=== PATIENT | female | born 1955 | race Caucasian/White ===

== ENCOUNTER 2022-07-17 12:07 | Outpatient (CLI) | payer MEDICARE, OTHER, SELFPAY ==
[2022-07-17 18:04] LABS: Basophils Percent Auto 0.7 % (0.2-1.2); Eosinophils Absolute Auto 0.2 K/mm3 (0-0.3); Eosinophils Percent Auto 3.8 % (0-4.4); Hematocrit 35.3 % (37.0-47.0); Hemoglobin 11.1 g/dL (12.0-15.0); Lymphocytes Absolute Auto 1.42 K/mm3 (0.9-3.2); Lymphocytes Percent Auto 25.8 % (18.3-44.2); Mean Corpuscular HGB Conc 31.4 g/dl (32-36); Mean Corpuscular Hemoglobin 30.6 pg (26-34); Mean Corpuscular Volume 97.2 fl (80-100); Monocytes Absolute Auto 0.4 K/mm3 (0.1-0.6); Monocytes Percent Auto 6.9 % (2.6-8.5); Neutrophils Absolute Auto 3.5 K/mm3 (1.3-6.7); Neutrophils Percent Auto 62.8 % (45.5-73.1); Platelet Count Result 174 k/mm3 (150-375); Red Blood Count 3.63 M/mm3 (4.2-5.4); Red Cell Distribution Width 13.4 % (11.5-14.5); White Blood Count 5.5 K/mm3 (4.5-10.0)
[2022-07-17 19:33] LABS: Alanine Aminotransferase 14 U/L (6-35); Albumin Level 4.2 g/dL (3.5-5.1); Alkaline Phosphatase 91 U/L (38-126); Anion Gap 6 mmol/L (8-16); Aspartate Amino Transferase 51 U/L (14-36); Bilirubin,Total 1.5 mg/dL (0.2-1.3); Blood Urea Nitrogen 11 mg/dL (7-17); Calcium 8.9 mg/dL (8.4-10.2); Carbon Dioxide 33 mmol/L (22-30); Chloride 101 mmol/L (98-107); Cholesterol 119 mg/dL (0-200); Estimated Glomerular Filt Rate > 60; Glucose 97 mg/dL (65-110); HDL Direct 42 mg/dL; Sodium 140 mmol/L (137-145); Triglycerides 71 mg/dL (<150)
[2022-07-17 19:46] LABS: LDL Cholesterol Direct 54 mg/dL
== END 2022-07-17 12:08 | disposition home or self-care (01) ==
PROVIDERS: PCP Family Medicine; Visit Provider Family Medicine
DX: E07.9 Disorder of thyroid, unspecified (principal); I51.9 Heart disease, unspecified
CPT/HCPCS: 36415; 80053; 80061; 84443; 85025

== ENCOUNTER 2023-01-20 11:15 | Outpatient (CLI) | payer MEDICARE, OTHER, SELFPAY | END 2023-01-20 11:16 | disposition home or self-care (01) | PROVIDERS: PCP Family Medicine; Visit Provider Family Medicine | DX: E07.9 Disorder of thyroid, unspecified (principal) | CPT/HCPCS: 36415; 84443 ==

== ENCOUNTER 2023-03-20 10:31 | Outpatient (CLI) | payer MEDICARE, OTHER, SELFPAY | END 2023-03-20 10:32 | disposition home or self-care (01) | LOC: ANHBWCLAB 10:34 | PROVIDERS: PCP Family Medicine; Visit Provider Family Medicine | DX: E07.9 Disorder of thyroid, unspecified (principal) | CPT/HCPCS: 36415; 84443 ==

== ENCOUNTER 2023-04-17 12:05 | Outpatient (CLI) | payer OTHER, SELFPAY ==
[2023-04-17 18:59] LABS: Hematocrit 39.5 % (37.0-47.0); Hemoglobin 12.8 g/dL (12.0-15.0); Mean Corpuscular HGB Conc 32.4 g/dl (32-36); Mean Corpuscular Hemoglobin 33.2 pg (26-34); Mean Corpuscular Volume 102.6 fl (80-100); Mean Platelet Volume 9.5 fl (7.4-10.4); Platelet Count Result 170 k/mm3 (150-375); Red Blood Count 3.85 M/mm3 (4.2-5.4); Red Cell Distribution Width 12.7 % (11.5-14.5); White Blood Count 5.5 K/mm3 (4.5-10.0)
[2023-04-17 19:36] LABS: Alanine Aminotransferase 11 U/L (6-35); Alkaline Phosphatase 73 U/L (38-126); Anion Gap 5 mmol/L (8-16); Aspartate Amino Transferase 39 U/L (14-36); Bilirubin,Total 1.7 mg/dL (0.2-1.3); Blood Urea Nitrogen 11 mg/dL (7-17); Calcium 9.4 mg/dL (8.4-10.2); Carbon Dioxide 34 mmol/L (22-30); Chloride 100 mmol/L (98-107); Estimated Glomerular Filt Rate 55; Glucose 85 mg/dL (65-110); Potassium 3.9 mmol/L (3.4-5.0); Sodium 139 mmol/L (137-145)
[2023-04-17 20:50] LABS: Appearance Urine Cloudy (Clear); Color Urine Yellow (Yellow)
[2023-04-17 20:51] LABS: Bilirubin Urine 1+ (Negative); Blood Urine Negative (Negative); Glucose Urine UA Negative (Negative); Ketones Urine Trace mg/dL (Negative); Leukocyte Esterase Ur Negative LEU/UL (NEGATIVE); Nitrate Urine Negative (Negative); Protein Urine Trace mg/dL (Negative); Specific Grav Ur >= 1.030 (1.001-1.035); Urobilinogen Urine 0.2 mg/dL (<2.0)
[2023-04-17 20:52] LABS: Add Urine Microscopic? NO
== END 2023-04-17 12:06 | disposition home or self-care (01) ==
LOC: ANHBWCLAB 12:06
PROVIDERS: PCP Family Medicine; Visit Provider Family Medicine
DX: I51.9 Heart disease, unspecified (principal); G47.00 Insomnia, unspecified; D64.9 Anemia, unspecified; B34.9 Viral infection, unspecified; E07.9 Disorder of thyroid, unspecified
CPT/HCPCS: 36415; 80053; 81003; 85027

== ENCOUNTER 2023-05-27 11:24 | Outpatient (CLI) | payer OTHER, SELFPAY ==
[2023-05-27 19:41] LABS: Thyroid Stimulating Hormone 0.372 uIU/mL (0.465-4.680)
== END 2023-05-27 11:25 | disposition home or self-care (01) ==
LOC: ANHBWCLAB 11:25
PROVIDERS: PCP Family Medicine; Visit Provider Family Medicine
DX: Z09 Encounter for follow-up examination after completed treatment for conditions other than malignant neoplasm (principal)
CPT/HCPCS: 36415; 84443

== ENCOUNTER 2023-08-04 11:17 | Outpatient (CLI) | payer OTHER, SELFPAY ==
[2023-08-04 19:22] LABS: Free T4 Free Thyroxine 1.43 ng/mL (0.78-2.19)
[2023-08-04 19:32] LABS: Alanine Aminotransferase 11 U/L (6-35); Albumin Level 4.1 g/dL (3.5-5.1); Alkaline Phosphatase 69 U/L (38-126); Aspartate Amino Transferase 57 U/L (14-36); Bilirubin,Total 1.7 mg/dL (0.2-1.3)
== END 2023-08-04 11:18 | disposition home or self-care (01) ==
PROVIDERS: PCP Family Medicine; Visit Provider Family Medicine
DX: E03.9 Hypothyroidism, unspecified (principal); I51.9 Heart disease, unspecified; R74.8 Abnormal levels of other serum enzymes; D64.9 Anemia, unspecified; G47.00 Insomnia, unspecified; I10 Essential (primary) hypertension
CPT/HCPCS: 36415; 80076; 84439; 84443

== ENCOUNTER 2023-12-18 11:14 | Outpatient (CLI) | payer OTHER, SELFPAY ==
[2023-12-18 19:03] LABS: Hematocrit 39.3 % (37.0-47.0); Hemoglobin 12.5 g/dL (12.0-15.0); Mean Corpuscular HGB Conc 31.8 g/dl (32-36); Mean Corpuscular Hemoglobin 33.6 pg (26-34); Mean Corpuscular Volume 105.6 fl (80-100); Mean Platelet Volume 9.6 fl (7.4-10.4); Platelet Count Result 142 k/mm3 (150-375); Red Blood Count 3.72 M/mm3 (4.2-5.4); White Blood Count 5.8 K/mm3 (4.5-10.0)
[2023-12-18 19:13] LABS: Alanine Aminotransferase 11 U/L (6-35); Alkaline Phosphatase 69 U/L (38-126); Anion Gap 8 mmol/L (4-12); Aspartate Amino Transferase 50 U/L (14-36); Bilirubin,Total 1.7 mg/dL (0.2-1.3); Blood Urea Nitrogen 16 mg/dL (7-17); Calcium 8.8 mg/dL (8.4-10.2); Carbon Dioxide 30 mmol/L (22-30); Chloride 100 mmol/L (98-107); Cholesterol 126 mg/dL (0-200); Estimated Glomerular Filt Rate 49; Glucose 101 mg/dL (65-110); HDL Direct 56 mg/dL; Potassium 3.9 mmol/L (3.4-5.0); Sodium 138 mmol/L (137-145); Triglycerides 79 mg/dL (<150)
[2023-12-18 19:24] LABS: LDL Cholesterol Direct 49 mg/dL
[2023-12-18 19:29] LABS: Free T4 Free Thyroxine 1.27 ng/mL (0.78-2.19)
[2023-12-18 19:33] LABS: Vitamin D 25 Hydroxy 32.9 ng/mL
[2023-12-18 19:55] LABS: Hepatitis B Surface Antigen Negative (Negative)
[2023-12-18 20:00] LABS: HAV RESULT Negative (Negative); Hepatitis B Core IgM Result Negative (Negative)
[2023-12-18 20:12] LABS: Hepatitis C Virus Antibody Negative (Negative)
== END 2023-12-18 11:15 | disposition home or self-care (01) ==
PROVIDERS: PCP Family Medicine; Visit Provider Family Medicine
DX: E03.9 Hypothyroidism, unspecified (principal); R74.01 Elevation of levels of liver transaminase levels; E55.9 Vitamin D deficiency, unspecified; G47.00 Insomnia, unspecified; R74.8 Abnormal levels of other serum enzymes; D64.9 Anemia, unspecified; E07.9 Disorder of thyroid, unspecified; I51.9 Heart disease, unspecified; K92.9 Disease of digestive system, unspecified; K31.89 Other diseases of stomach and duodenum; Z98.84 Bariatric surgery status
CPT/HCPCS: 36415; 80053; 80061; 80074; 82306; 84439; 84443; 85027

== ENCOUNTER 2024-02-12 00:02 | Day surgery (SDC) | payer OTHER, SELFPAY ==
[2024-02-02 15:12] VITALS: BMI 37.9
--- NOTE | 2024-02-12 07:50 | P.PNAN_ITS ---
Anes - Initial Pre Proc Eval Procedure: Operation Date: 02/12/24 10:30 Proposed Procedures p Screening Colonoscopy - Jermain Hutchison DO Date/Time: 02/12/24 07:50 Surgeon: Jermain Hutchison DO Pre Op Diagnosis: Screening for malignant neoplasm of colon Patient Data Age: 68 Gender: F Height: 1.55 m Weight: 91 kg Allergies Allergy/AdvReac Type Severity Reaction Status Date / Time ampicillin Allergy Unknown Dyspnea / Verified 02/12/24 09:41 SOB cephalexin Allergy Unknown Dyspnea / Verified 02/12/24 09:41 SOB Penicillins Allergy Unknown Dyspnea / Verified 02/12/24 09:41 SOB Home Medications Medication Instructions Recorded Confirmed Type cholecalciferol (vitamin D3) 50 50 mcg PO DAILY 07/17/22 02/12/24 History mcg/drop (2,000 unit/drop) oral drops timolol 0.5 % eye drops 1 drp EACH EYE Q12H 07/17/22 02/12/24 History furosemide 20 mg tablet 20 mg PO QAM #90 tabs 05/30/23 02/12/24 Rx trazodone 100 mg tablet 100 mg PO QHS PRN insomnia #90 tabs 07/14/23 02/12/24 Rx levothyroxine 100 mcg tablet See Rx Instructions .Route 07/24/23 02/12/24 Rx .COMPLEX #60 tabs Fluorometholone 1 drp EACH EYE DAILY 08/04/23 02/12/24 History meloxicam 15 mg tablet 15 mg PO DAILY PRN Pain, Mild 08/04/23 02/12/24 History triamcinolone acetonide 0.1 % 1 applic topical BID left lower 11/18/23 02/12/24 Rx topical cream leg rash #80 grams brimonidine 0.2 % eye drops 1 drp EACH EYE DAILY 02/02/24 02/12/24 History Patient hx anesthesia problems: none Family hx anesthesia problems: none Results Review: All pre-operative results and documents have been reviewed as part of the pre- operative evaluation. [facility] Past Medical History Medical History Disorder of thyroid Elevated liver enzymes Heart disease Hypothyroidism PDA (patent ductus arteriosus) Surgical History Surgical History S/P gastric bypass Family History Family History Mother Family history of arthritis Father Family history of lung cancer Sibling Skin cancer Grandparent Disorder of thyroid Social History Social History Smoking status: Never smoker Alcohol intake: never Alcohol use details: Wine on occasion Substance use: never Substance use type: does not use Lack of Transportation: No Lack of Food: Never True Current Housing: I Have Housing Concerned About Future Housing: No Difficulty Paying Gas/Electric Bills: No Difficulty Paying for Meds: No Currently Unemployed: No Education: High School Diploma/GED Difficulty w/ Childcare or Family Care: No Living arrangements: with family Occupation/Education: retired Gender identity (if verbalized by the patient): Female Spiritual care concerns: No Agree to blood products: No Anes - Eval Final PreProcedure Day of Procedure 02/12/24 07:50 Patient weight: obese Heart: regular rate and rhythm Lungs: clear to auscultation Airway: Mallampati scale class III Neurological: alert and oriented Last oral intake: >/= 8 hours ASA classification: III Emergent: no Anesthetic plan: proceed Anesthesia type and monitoring: general GIVS Results Review: All pre-operative results and documents have been reviewed as part of the pre- operative evaluation. Informed Consent: The patient's anesthetic plan and its attendant risks and benefits were discussed with the patient/family/POA. Questions were solicited and answers provided to the satisfaction of the patient/family/POA.
[2024-02-12 09:44] VITALS: BP 142/72; PULSE 81; RESP 16; TEMP 36.2; O2SAT 99; BMI 37.9
[2024-02-12] MEDS: LACTATED RINGERS 1,000 ML 150 ML IV CONT (10:00)
--- NOTE | 2024-02-12 11:06 | PM.IMHP ---
H&P: HPI History of Present Illness Date/Time: 02/12/24 11:06 Chief Complaint: screening for colorectal cancer Narrative: this is a 68-year-old woman who presents for colonoscopy. Her last colonoscopy was 5 years ago and polyps were removed. She denies any hematochezia she denies family history of colon cancer. Review of Systems Review of Systems: All systems reviewed & are unremarkable except as noted in HPI and below Constitutional: Constitutional: Denies chills, Denies fever(s), Denies headache(s) and Denies weight loss Eyes: Eyes: Denies change in vision ENT: Denies dizziness, Denies headache(s), Denies neck mass and Denies throat swelling Cardiovascular: Cardiovascular: Denies chest pain, Denies lightheadedness and Denies dyspnea Respiratory: Respiratory: Denies cough, Denies dyspnea and Denies wheezing Gastrointestinal: Gastrointestinal: Denies abdominal pain, Denies change in bowel habits, Denies nausea and Denies vomiting Genitourinary: Genitourinary: Denies hematuria and Denies dysuria Musculoskeletal: Musculoskeletal: Reports as per HPI Integumentary/Breasts: Skin/Breast: Reports as per HPI Neurologic: Denies dizziness and Denies headache(s) Allergic/Immunologic: Allergic/Immunologic: Denies throat swelling and Denies wheezing [facility] Past Medical History Medical History (Updated 02/12/24 @ 08:10 by Quinn Menendez Jr., CRNA) Disorder of thyroid Elevated liver enzymes Heart disease Hypothyroidism PDA (patent ductus arteriosus) Surgical History Surgical History S/P gastric bypass Family History Family History Mother Family history of arthritis Father Family history of lung cancer Sibling Skin cancer Grandparent Disorder of thyroid Social History Social History Smoking status: Never smoker Alcohol intake: never Alcohol use details: Wine on occasion Substance use: never Substance use type: does not use Lack of Transportation: No Lack of Food: Never True Current Housing: I Have Housing Concerned About Future Housing: No Difficulty Paying Gas/Electric Bills: No Difficulty Paying for Meds: No Currently Unemployed: No Education: High School Diploma/GED Difficulty w/ Childcare or Family Care: No Living arrangements: with family Occupation/Education: retired Gender identity (if verbalized by the patient): Female Spiritual care concerns: No Agree to blood products: No Meds Home Medications and Allergies Home Medications Medication Instructions Recorded Confirmed Type cholecalciferol (vitamin D3) 50 50 mcg PO DAILY 07/17/22 02/12/24 History mcg/drop (2,000 unit/drop) oral drops timolol 0.5 % eye drops 1 drp EACH EYE Q12H 07/17/22 02/12/24 History furosemide 20 mg tablet 20 mg PO QAM #90 tabs 05/30/23 02/12/24 Rx trazodone 100 mg tablet 100 mg PO QHS PRN insomnia #90 tabs 07/14/23 02/12/24 Rx levothyroxine 100 mcg tablet See Rx Instructions .Route 07/24/23 02/12/24 Rx .COMPLEX #60 tabs Fluorometholone 1 drp EACH EYE DAILY 08/04/23 02/12/24 History meloxicam 15 mg tablet 15 mg PO DAILY PRN Pain, Mild 08/04/23 02/12/24 History triamcinolone acetonide 0.1 % 1 applic topical BID left lower 11/18/23 02/12/24 Rx topical cream leg rash #80 grams brimonidine 0.2 % eye drops 1 drp EACH EYE DAILY 02/02/24 02/12/24 History Allergies Allergy/AdvReac Type Severity Reaction Status Date / Time ampicillin Allergy Unknown Dyspnea / Verified 02/12/24 09:41 SOB cephalexin Allergy Unknown Dyspnea / Verified 02/12/24 09:41 SOB Penicillins Allergy Unknown Dyspnea / Verified 02/12/24 09:41 SOB Vital Signs Vital Signs - 24 hr 02/12/24 09:44 Temperature 97.2 F L Pulse Rate 81 Respiratory Rate 16 Blood Pressure 142/72 H Pulse Oximetry 99 Oxygen Delivery Room Air Exam Const: General: no acute distress and alert Orientation/consciousness: patient oriented x3 HENMT: Head: normocephalic and atraumatic Ears: hearing grossly normal bilaterally Face/Nose/Sinus: Normal nares present Mouth: Yes Normal oral and palatal mucosa present Eyes: Periorbital: periorbital findings normal Sclera: sclerae normal EOM: EOMs intact bilaterally Neck: Neck: normal visual inspection, no lymphadenopathy and trachea midline Chest: Chest palpation & inspection: normal inspection of the chest Resp: Effort & Inspection: normal respiratory effort Auscultation: clear to auscultation bilaterally Cardio: Jugular venous distension: no JVD Rate: regular rate Rhythm: regular rhythm Heart sounds: S1 normal heart sound present and S2 normal heart sound present Peripheral pulses: Peripheral pulses 2+ throughout GI: Inspection: normal to inspection GI Palp: Yes Soft to palpation, No Tenderness to palpation present (GI), No Guarding due to palpation present (GI) and No Rebound tenderness present Percussion: Yes normal to percussion Auscultation: normal bowel sounds : General: Yes no CVA tenderness Back/Spine/Pelvis: Back: no CVA tenderness Neuro: General: patient oriented x3, no focal motor deficits and CN's II-XI intact bilaterally Cognition (Neuro): normal cognition Speech: normal speech Motor exam (neuro): 5/5 motor strength present throughout Extrem: General: capillary refill normal and no clubbing, cyanosis or edema Assessment and Plan Assessment and plan (1) Colon cancer screening: Code(s): Z12.11 - Encounter for screening for malignant neoplasm of colon Status: Acute Assessment and Plan: I have recommended colonoscopy. I have discussed the procedure, risks, benefits, and alternatives. Questions were answered. Patient is agreeable to proceed.
--- NOTE | 2024-02-12 11:17 | WPDANESEPPF ---
Anes - Initial Pre Proc Eval Procedure: Operation Date: 02/12/24 10:30 Proposed Procedures p Screening Colonoscopy - Jermain Hutchison DO Date/Time: 02/12/24 11:17 Surgeon: Jermain Hutchison DO Pre Op Diagnosis: Screening for malignant neoplasm of colon Patient Data Age: 68 Gender: F Height: 1.55 m Weight: 91 kg Last Vital Signs Temp 36.2 C L 02/12/24 09:44 Pulse 81 02/12/24 09:44 Resp 16 02/12/24 09:44 BP 142/72 H 02/12/24 09:44 Pulse Ox 99 02/12/24 09:44 O2 Del Method Room Air 02/12/24 09:44 Allergies Allergy/AdvReac Type Severity Reaction Status Date / Time ampicillin Allergy Unknown Dyspnea / Verified 02/12/24 09:41 SOB cephalexin Allergy Unknown Dyspnea / Verified 02/12/24 09:41 SOB Penicillins Allergy Unknown Dyspnea / Verified 02/12/24 09:41 SOB Home Medications Medication Instructions Recorded Confirmed Type cholecalciferol (vitamin D3) 50 50 mcg PO DAILY 07/17/22 02/12/24 History mcg/drop (2,000 unit/drop) oral drops timolol 0.5 % eye drops 1 drp EACH EYE Q12H 07/17/22 02/12/24 History furosemide 20 mg tablet 20 mg PO QAM #90 tabs 05/30/23 02/12/24 Rx trazodone 100 mg tablet 100 mg PO QHS PRN insomnia #90 tabs 07/14/23 02/12/24 Rx levothyroxine 100 mcg tablet See Rx Instructions .Route 07/24/23 02/12/24 Rx .COMPLEX #60 tabs Fluorometholone 1 drp EACH EYE DAILY 08/04/23 02/12/24 History meloxicam 15 mg tablet 15 mg PO DAILY PRN Pain, Mild 08/04/23 02/12/24 History triamcinolone acetonide 0.1 % 1 applic topical BID left lower 11/18/23 02/12/24 Rx topical cream leg rash #80 grams brimonidine 0.2 % eye drops 1 drp EACH EYE DAILY 02/02/24 02/12/24 History Patient hx anesthesia problems: none Family hx anesthesia problems: none Results Review: All pre-operative results and documents have been reviewed as part of the pre-operative evaluation. [facility] Past Medical History Medical History Disorder of thyroid Elevated liver enzymes Heart disease Hypothyroidism PDA (patent ductus arteriosus) Surgical History Surgical History S/P gastric bypass Family History Family History Mother Family history of arthritis Father Family history of lung cancer Sibling Skin cancer Grandparent Disorder of thyroid Social History Social History Smoking status: Never smoker Alcohol intake: never Alcohol use details: Wine on occasion Substance use: never Substance use type: does not use Lack of Transportation: No Lack of Food: Never True Current Housing: I Have Housing Concerned About Future Housing: No Difficulty Paying Gas/Electric Bills: No Difficulty Paying for Meds: No Currently Unemployed: No Education: High School Diploma/GED Difficulty w/ Childcare or Family Care: No Living arrangements: with family Occupation/Education: retired Gender identity (if verbalized by the patient): Female Spiritual care concerns: No Agree to blood products: No Anes - Eval Final PreProcedure Day of Procedure 02/12/24 11:17 Patient weight: obese Heart: regular rate and rhythm (murmur) Lungs: clear to auscultation and normal air movement Airway: Mallampati scale class II and special considerations (several missing teeth) poor dentition Neurological: alert and oriented Last oral intake: >/= 8 hours ASA classification: III Emergent: no Anesthetic plan: proceed Anesthesia type and monitoring: general GIVS and standard monitoring Results Review: All pre-operative results and documents have been reviewed as part of the pre-operative evaluation. Informed Consent: The patient's anesthetic plan and its attendant risks and benefits were discussed with the patient/family/POA. Questions were solicited and answers provided to the satisfaction of the patient/family/POA.
[2024-02-12 11:37] VITALS: BP 142/72; PULSE 71; RESP 17; O2SAT 99
[2024-02-12 11:47] VITALS: BP 134/60; PULSE 70; RESP 19; O2SAT 100
[2024-02-12 11:57] VITALS: BP 120/63; PULSE 63; RESP 22; O2SAT 100
== END 2024-02-12 12:12 | disposition home or self-care (01) ==
PROVIDERS: PCP Family Medicine; Visit Provider Surgery
PROC: 0DJD8ZZ Inspection of Lower Intestinal Tract, Via Natural or Artificial Opening Endoscopic (ICD-10-PCS; CPT 45378; principal; 2024-02-12 10:30)
DX: Z12.11 Encounter for screening for malignant neoplasm of colon (principal); E07.9 Disorder of thyroid, unspecified; E03.9 Hypothyroidism, unspecified; I51.9 Heart disease, unspecified; Q25.0 Patent ductus arteriosus; E66.9 Obesity, unspecified; Z68.37 Body mass index [BMI] 37.0-37.9, adult; Z98.890 Other specified postprocedural states; Z98.84 Bariatric surgery status; Z86.0100 Personal history of colon polyps, unspecified; Z80.1 Family history of malignant neoplasm of trachea, bronchus and lung; Z84.0 Family history of diseases of the skin and subcutaneous tissue
CPT/HCPCS: G0105; J2003; J2704; J7120

== ENCOUNTER 2024-06-07 10:48 | Outpatient (CLI) | payer OTHER, SELFPAY | END 2024-06-07 10:49 | disposition home or self-care (01) | LOC: GOSHIMG 10:48 | PROVIDERS: PCP Family Medicine; Visit Provider Family Medicine | DX: R90.82 White matter disease, unspecified (principal); R74.8 Abnormal levels of other serum enzymes; E03.9 Hypothyroidism, unspecified; G47.00 Insomnia, unspecified; D64.9 Anemia, unspecified; I51.9 Heart disease, unspecified; R41.3 Other amnesia; R42 Dizziness and giddiness; S09.90XA Unspecified injury of head, initial encounter; X58.XXXA Exposure to other specified factors, initial encounter | CPT/HCPCS: 70551; 76705 ==

== ENCOUNTER 2024-06-10 14:41 | Outpatient (CLI) | payer OTHER, SELFPAY ==
--- OUTSIDE RECORDS SUMMARY | 2024-06-10 16:00 | XMS_ITS | Encounter Summary ---
Author Organization [facility] Address [address] [place] [address] Phone Care Team Providers Care Quilt Stuffer Name Role Phone Bettie Dietz APRN, CNP Primary Care P rovider Jorge Orellana MD Primary Care Provider [phone] Bettie Dietz APRN, CNP Primary Care P rovider Jorge Orellana MD Primary Care Provider [phone] Reason for Visit * Reason Comments Medication Refill Encounter Details Date Type Department Care Team (Late st Contact Info) Description 03/03/2022 Refill [facility] - Primary Care - [place] [address] [place] [address] Bettie Dietz APRN, [facility] [address] [place] [address] Medication Refill Social History Tobacco Use Types Packs/Day Years Used Date Smoking Tobacco: Never Smokeless Tobacco: Never Alcohol Use Standard Drinks/Week Comments No 0 (1 standard drink = 0.6 oz pur e alcohol) PHQ-2 Answer Date Recorded Total Score - Questions 1-9 0 08/06 Comments No Sex and Gender Information Value Date Recorded Sex Assigned at Not on file Legal Sex Female 4:25 PM HAY FARMER Gender Identity Not on file Sexual Orientation Not on file Occupation Industry Job Start Date Job End Date [employer]- [employer] Not on file Not on file Not on file documented as of this encounter Miscellaneous Notes * Telephone Encounter - Radu Barajas PAC - 03/04/2022 11:14 AM HAY FARMER Rx request approved. FARMER * Telephone Encounter - Teri Wade RN - 03/04/2022 8:01 AM CST Medication failed the protocol, provider to review and approve the medication order if appropriate. Requested Prescriptions Pending Prescriptions Disp Refills meloxicam (MOBIC) 15 MG Tablet [Pharmacy Med Name: MELOXICAM 15 MG TABLET] 90 Tablet 0 Sig: TAKE 1 TABLET BY MOUTH EVERY DAY NSAIDs Protocol Failed - 03/03/2022 7:04 AM Failed - Normal serum creatinine in past 12 months CREATININE, BLOOD Date Value Ref Range Status 08/08/2021 1.21 (H) 0.60 - 1.10 mg/dL Final Failed - Not delegated, patient not between 1 and 65 years of age Passed - Visit with relevant provider in past 12 months or upcoming 90 days Recent Visits Date Type Provider Dept 12/26/21 Office Visit Bettie Dietz APRN, CNP [facility] 09/05/21 Office Visit Bettie Dietz APRN, CNP [facility] 08/08/21 Office Visit Bettie Dietz APRN, CNP [facility] [employer] Showing recent visits within past 365 days and meeting all other requirements Future Appointments Date Type Provider Dept 03/27/22 Appointment [facility] 04/03/22 Appointment Bettie Dietz APRN, [facility] Showing future appointments within next 90 days and meeting all other requirements Passed - No matching NSAID med order in past 45 days No matching medication orders between 01/18/2022 8:01 AM and 03/04/2022 8:01 AM Passed - AST less than 55 or ALT less than 90 in past 12 months SGOT (AST) Date Value Ref Range Status 08/08/2021 40 (H) <=32 U/L Final SGPT (ALT) Date Value Ref Range Status 08/08/2021 19 <=41 U/L Final Passed - HGB greater than 10 or HCT greater than 30 in past 12 months HEMOGLOBIN (HGB) Date Value Ref Range Status 08/08/2021 11.9 (L) 12.0 - 15.8 g/dL Final HEMATOCRIT (HCT) Date Value Ref Range Status 08/08/2021 37.0 36.0 - 47.0 % Final FARMER documented in this encounter Plan of Treatment Upcoming Encounters Date Type Department Care Team (Late st Contact Info) Description 12/20/2024 10:15 AM CDT Appointment [facility] [address] [phone] Radu Barajas, PAC [address] [place] [address] Discharge Disposition: Discharged to home or Selfcare documented as of this encounter Visit Diagnoses Diagnosis Primary osteoarthritis involving multiple joints documented in this encounter Additional Health Concerns Infection Onset Date Last Indicated Resolved Time COVID - 19 04/29/2022 04/29/2022 04/29/2022 8:51 AM HAY FARMER COVID - 19 Confirmed 04/29/2022 04/29/2022 023 12:16 AM HAY FARMER COVID - 19 03/09/2023 03/09/2023 03/19/2023 12:1 6 AM HAY FARMER Assessment Noted Time PHQ-9 Depression Total Score: 0 08/31/19 21 11:00 AM CDT documented as of this encounter Care Teams Quilt Stuffer Relationship Specialty Start Date End Date Bettie Dietz, LOOM DOFFER, LEAD DEVELOPER [address] [place] [address] PCP - General Advanced Practice Nurse 01/30/18 Jorge Orellana MD [address] [place] [address] PCP - General Family Medicine 08/21/22 08/26/22 Bettie Dietz APRN, LEAD DEVELOPER [address] [place] [address] PCP - General Advanced Practice Nurse 08/27/2202/27 Jorge Orellana MD [address] [place] [address] PCP - General Family Medicine 02/28/23 documented as of this encounter
--- OUTSIDE RECORDS SUMMARY | 2024-06-10 16:00 | XMS_ITS | Encounter Summary ---
Author Organization [facility] Address [address] [place] [address] Phone Care Team Providers Care Restaurant Service Manager Name Role Phone Bettie Dietz APRN, CNP Primary Care P rovider Jorge Orellana MD Primary Care Provider Bettie Dietz APRN, CNP Primary Care P rovider Jorge Orellana MD Primary Care Provider Reason for Visit * Reason Comments Medication Refill Encounter Details Date Type Department Care Team (Late st Contact Info) Description 10/23/2021 Refill [facility] - Primary Care - [place] [address] [place] [address] Bettie Dietz APRN, [facility] [address] [place] [address] Medication Refill Social History Tobacco Use Types [...] on file Legal Sex Female 4:25 PM SHRUB PLANTER Gender Identity Not on file Sexual Orientation Not on file Occupation Industry Job Start Date Job End Date [employer]- [employer] Not on file Not on file Not on file documented as of this encounter Miscellaneous Notes * Telephone Encounter - Teri Wade RN - 10/23/2021 10:27 AM CDT Refill request too soon documented in this encounter Plan of Treatment Upcoming Encounters Date Type Department Care Team (Late st Contact Info) Description 12/20/2024 10:15 AM CDT Appointment [facility] [address] [place] [id number] Radu Barajas PAC [address] [place] [id number] Discharge Disposition: Discharged to home or Selfcare documented as of this encounter Visit Diagnoses Diagnosis Primary hypertension Unspecified essential hypertension Chronic combined systolic and diastolic heart failure, NYHA class 3 (HCC) Hypothyroidism, adult Other specified acquired hypothyroidism documented in this encounter Additional Health Concerns Infection Onset Date Last Indicated Resolved Time COVID - 19 04/29/2022 04/29/2022 04/29/2022 8:51 AM SHRUB PLANTER COVID - 19 Confirmed 04/29/2022 04/29/2022 023 12:16 AM SHRUB PLANTER COVID - 19 03/09/2023 03/09/2023 03/19/2023 12:1 6 AM SHRUB PLANTER Assessment Noted Time PHQ-9 Depression Total Score: 0 08/31/19 21 11:00 AM CDT documented as of this encounter Care Teams Restaurant Service Manager Relationship Specialty Start Date End Date Bettie Dietz APRN, LIVING ADVISOR [address] [place] [address] PCP - General Advanced Practice Nurse 01/30/18 Jorge Orellana MD [address] [place] [address] PCP - General Family Medicine 08/21/22 08/26/22 Bettie Dietz APRN, LIVING ADVISOR [address] [place] [address] PCP - General Advanced Practice Nurse 08/27/2202/27 Jorge Orellana MD [address] [place] [address] PCP - General Family Medicine 02/28/23 documented as of this encounter
--- OUTSIDE RECORDS SUMMARY | 2024-06-10 16:00 | XMS_ITS | Clinical Summary ---
Author Organization [facility] Address [address] [place] [address] Phone Care Team Providers Care Magazine Publisher Name Role Phone Jorge Orellana MD Primary Care Provider [phone] Allergies Active Allergy Reactions Criticality Noted Date Comments Ampicillin Anaphylaxis High 05/25/2015 Cephalexin Anaphylaxis High 05/25/2015 Penicillins Anaphylaxis High 05/25/2015 Medications spironolactone (ALDACTONE) 25 MG TabletIndications: Chronic combined systolic and diastolic heart failure, NYHA class 3 (HCC) Take 1 Tablet by mouth daily. 90 Tablet 3 02/06/20 21 Active Cholecalciferol 50 mcg Tablet Take 2,000 Units by mouth. 02/15/20 21 Active brimonidine (ALPHAGAN) 0.2 % Solution 1 Drop. 04/12/19 21 Active fluorometholone (FML) 0.1 % Suspension 1 Drop. 10/11/19 21 Active timolol (TIMOPTIC) 0.5 % Solution 1 Drop. 05/09/19 21 Active triamcinolone (KENALOG) 0.1 % CreamIndications:R cherelle Application Site: apply sparingly to affected area bid 80 g 1 08/30/19 23 Active meloxicam (MOBIC) 15 MG TabletIndications: Primary osteoarthritis involving multiple joints TAKE 1 TABLET BY MOUTH EVERY DAY 90 Tablet 1 12/03/19 23 Active Additional Information Patient taking differently: DAILY PRN, Reported on 12/06/2022 furosemide (LASIX) 20 MG TabletIndications: Primary hypertension,Chron ic combined systolic and diastolic heart failure, NYHA class 3 (HCC) TAKE 1 TABLET BY MOUTH EVERY DAY 90 Tablet 1 12/03/19 23 Active Additional Information Patient taking differently: 20 mg Oral DAILY, Reported on 12/06/2022 levothyroxine (SYNTHROID) 88 MCG TabletIndications: Hypothyroidism, adult TAKE 1 TABLET BY MOUTH EVERY DAY 90 Tablet 1 12/03/19 23 Active metoprolol Succinate (TOPROL-XL) 25 MG TABLET SR 24 HR Take 25 mg by mouth nightly. Active traZODone (DESYREL) 50 MG TabletIndications: Insomnia Take 50 mg by mouth nightly as needed. Indications: Trouble Sleeping Active traMADol (ULTRAM) 50 MG TabletIndications: Contusion of nose, initial encounter Take 1-2 Tablets by mouth every 8 hours as needed for Moderate or more severe pain. 12 Tablet 02/29/20 23 Active Active Problems Problem Noted Date Diagnosed Date NICM (nonischemic cardiomyopathy) 01/24/2022 Age-related nuclear cataract, right eye 10/31/19 21 Endothelial corneal dystrophy 10/30/2020 Other secondary cataract, left eye 10/30/2020 Presence of intraocular lens 10/30/2020 Class 2 obesity due to exces s calories without serious comorbidity with body mass index (BMI) of 39.0 to 39.9 in adult 08/12/2019 Chronic combined systolic an d diastolic heart failure, NYHA class 3 08/07/2018 Primary osteoarthritis involving multiple joints 08/07/2018 Hypothyroidism, adult 12/15/2017 Patent ductus arteriosus 12/15/2017 History of corneal transplant 12/15/2017 Hypertension 12/15/2017 Periodontal disease 02/05/2017 Chronic rhinitis 02/01/2017 Resolved Problems Problem Noted Date Diagnosed Date Resolved Date Morbid obesity with BMI of 40.0-44.9, adult 02/05/2021 04/02/2022 Acute on chronic systolic an d diastolic heart failure, NYHA class 3 02/01/2017 08/07/2018 Overview (01/30/2018): Overview: Echo 2013 [facility]: [id number] Cardiac Sonography (Echocardiography), Doppler May 25, 1999, 10:04 at [facility] Final View Details Echocardiogram and doppler report The standard 2d and m-mode views were obtained as well as color flow and Standard doppler interrogation. The aortic root is of normal size and motion pattern. The aortic valve opens normally . left atrium is moderately enlarged at 4.5 centimeters. The mitral valve opens normally without stenosis or prolapse. The left ventricle is of normal VOLUME. THERE IS A MILD DIFFUSE HYPOKINESIS PRESENT. THE ESTIMATED EJECTION FRA CTION IS 45 PERCENT. THE RIGHT ATRIUM AND RIGHT VENTRICLE GROSSLY APPEAR NORMAL DOES THE TRICUSPID VALVE. PULMONIC VALVE WAS NOT SEEN. THERE IS NO PERICARDIAL EFFUSION. NO INTRACARDIAC THROMBI OR MASSES ARE NOTED. COLOR FLOW AND NCY. 3. MODERATE LEFT ATRIAL ENLARGEMENT. 4. MILD MITRAL INSUFFICIENCY. echo 2016 IMPRESSION: 1. MILDLY DILATED LEFT ATRIUM. 2. MILDLY ENLARGED LEFT VENTRICLE WITH BORDERLINE GLOBAL LV FUNCTION. EJECTION FRACTION IS ESTIMATED AT 50-55%. 3. NO LV MURAL THROMBUS OR VALVULAR VEGETATIONS. 4. PULMONIC INSUFFICIENCY. 5. AORTIC INSUFFICIENCY, MILD. 6. MITRAL REGURGITATION, MILD. 7. TRICUSPID REGURGITATION, TRIVIAL. 8. PROBABLE DIASTOLIC DYSFUNCTION. Interpreting Physician: DR DIANE AVILES M.D. Read on: Apr 05 2016 4:38P Transcribed by: pablo On: Apr 05 2016 5:16P Approved Electronically by: TRACI Cortes, DR CONTRERAS on: Apr 05 2016 5:23P Encounters Date Type Department Care Team Description 03/15/2024 12:45 PM ESOL TEACHER - 03/15/2024 11:59 PM ESOL TEACHER Hospital Encounter [facility] Mamm[address] [place] [address] Jorge Orellana MD Discharge Disposition: Discharged to home or Selfcare 03/15/2024 Travel from Last 3 Months Immunizations Immunization Administration Dates Next Due Pneumococcal Vaccine - 13 Valent 02/12/2019 Pneumococcal Vaccine Adult - 23 Valent 0 TDAP Vaccine 11/23/2013 Zoster Vaccine, live 04/02/2013 Family History Medical History Relation Name Comments Cancer Brother skin Cancer Father LUNG Cancer Mother LUNG Heart Disease Mother Relation Name Status Comments Brother Father Mother Social History Tobacco Use Types Packs/Day Years Used Date Smoking Tobacco: Never Smokeless Tobacco: Never Tobacco Cessation:Counseling Given: Not Answered Alcohol Use Standard Drinks/Week Comments No 0 (1 standard drink = 0.6 oz pur e alcohol) PHQ-2 Answer Date Recorded Total Score - Questions 1-9 0 05/2 09/2020 Comments No Sex and Gender Information Value Date Recorded Sex Assigned at Not on file Legal Sex Female 4:25 PM ESOL TEACHER Gender Identity Not on file Sexual Orientation Not on file Occupation Industry Job Start Date Job End Date [employer] Not on file Not on file Not on file Last Filed Vital Signs Vital Sign Reading Time Taken Comments Blood Pressure 102/50 03/09/2023 3:15 PM ESOL TEACHER Pulse 72 03/09/2023 3:15 PM ESOL TEACHER Temperature 37 C (98.6 F) 03/09/2023 10:24 AM ESOL TEACHER Respiratory Rate 17 03/09/2023 3:15 PM ESOL TEACHER Oxygen Saturation 97% 03/09/2023 3:15 PM ESOL TEACHER Inhaled Oxygen Concentration - - Weight 91.2 kg (201 lb) 03/09/2023 10:24 AM ESOL TEACHER Height 154.9 cm (5' 1 ) 03/09/2023 10:24 AM ESOL TEACHER Body Mass Index 37.98 03/09/2023 10:24 AM ESOL TEACHER Plan of Treatment Upcoming Encounters Date Type Department Care Team (Late st Contact Info) Description 12/20/2024 10:15 AM CDT Appointment [facility] Mammography [address] [place] [address] Radu Barajas, [facility] [address] [place] [address] Discharge Disposition: Discharged to home or Selfcare Health Maintenance Due Date Last Done Comments Hepatitis C Virus (HCV) Screening 1955 Cologuard 2003 Immunochemical Fecal Occult Blood 2003 Respiratory Syncytial Virus (RSV) Immunization (Adult) (1 - Risk 60-74 years 1-dose series) 2013 Zoster Immunization (2 of 3) 05/28/2013 04/02/2013 Td Immunization Every 10 Years (Adults With 1 Tdap) 11/24/2023 11/23/2013 Influenza Immunization (#1) 2023 SARS-COV-2 Immunization ( season) 2023 DEXA Bone Density 12/17/2024 12/17/2022, , 03/07/2017 Mammogram 03/15/2025 03/15/2024, 08/0 06/2022, 10/11/2020, Additional history exists Colonoscopy 12/31/2027 12/30/2022, 08/08/2017 Colorectal Cancer Screening 12/31/2027 12/30/2022, 08/08/2017 Pneumococcal Immunization (50+ years) Completed 02/17/2020, 02/12/2019 Pneumococcal Immunization Combined Discontinued 02/17/2020, 02/12/2019 Hepatitis B Immunization Discontinued Meningococcal Immunization (ACWY) Aged Out No longer eligible based on patient's age to complete this topic Rotavirus Immunization Aged Out No lo nger eligible based on patient's age to complete this topic Procedures Procedure Name Priority Date/Time Associated Diagnosis Comments PEYTON SCREENING BILATERAL DIGITAL W CAD W MARI Routine 03/15/2024 1:26 PM ESOL TEACHER Visit for screening mammogram [facility] BONE DENSITOMETRY AXIAL SKELETON Routine 12/17/2022 1:36 PM CDT Postmenopausal from Last 3 Months or Most Recently Relevant to Health Maintenance Results * PEYTON SCREENING BILATERAL DIGITAL W CAD W MARI (03/15/2024 1:26 PM ESOL TEACHER) Anatomical Region Laterality Modality breast Bilateral Mammography 03/15/2024 1:27 PM ESOL TEACHER Narrative 03/16/2024 9:54 AM ESOL TEACHER - PEYTON SCREENING BILATERAL DIGITAL W CAD W MARI BILATERAL DIGITAL SCREENING MAMMOGRAM 3D/2D WITH CAD WITH MEDIOLATERAL OBLIQUE CRANIOCAUDAL: 03/15/2024 The study was acquired using digital technology and interpreted from soft copy. Current study was also evaluated with ICAD version 7.2. 2D digital mammographic views, as well as 3D digital tomosynthesis were performed in the CC and MLO projections. CLINICAL: Routine screening. Patient has no complaints. No personal history of cancer. No family history of breast cancer. COMPARISONS: Comparison is made to exams dated: 11/07/2022, 10/11/2020, 02/19/2019 [facility], and 03/07/2017 [facility]. BREAST TISSUE:There are scattered areas of fibroglandular density. FINDINGS: There are benign calcifications in both breasts. No significant masses, calcifications, or other findings are seen in either breast. There has been no significant interval change. IMPRESSION: BENIGN There is no mammographic evidence of malignancy. A 1 year screening mammogram is recommended. A letter will be sent to the patient with these results. The patient will be entered into a reminder system with a target due date of 1 year for her next screening exam. Electronically signed by: Violeta pearce/penrad:03/15/2024 18:03:31 Activities Attendant(s): RT [place](R)(M), [facility] letter sent: Normal Exam Reading location: [facility] Mammogram BI-RADS: Category 2: Benign Procedure Note Violeta Ricks MD - 03/16/2024 - PEYTON SCREENING BILATERAL DIGITAL W CAD W MARI BILATERAL DIGITAL SCREENING MAMMOGRAM 3D/2D WITH CAD WITH MEDIOLATERAL OBLIQUE CRANIOCAUDAL: 03/15/2024 The study was acquired using digital technology and interpreted from soft copy. Current study was also evaluated with ICAD version 7.2. 2D digital mammographic views, as well as 3D digital tomosynthesis were performed in the CC and MLO projections. CLINICAL: Routine screening. Patient has no complaints. No personal history of cancer. No family history of breast cancer. COMPARISONS: Comparison is made to exams dated: 11/07/2022, 10/11/2020, 02/19/2019 [facility], and 03[facility]07/2017 [facility]. BREAST TISSUE:There are scattered areas of fibroglandular density. FINDINGS: There are benign calcifications in both breasts. No significant masses, calcifications, or other findings are seen in either breast. There has been no significant interval change. IMPRESSION: BENIGN There is no mammographic evidence of malignancy. A 1 year screening mammogram is recommended. A letter will be sent to the patient with these results. The patient will be entered into a reminder system with a target due date of 1 year for her next screening exam. Electronically signed by: Violeta pearce/penrad:03/15/2024 18:03:31 Activities Attendant(s): RT [place](R)(M), [facility] letter sent: Normal Exam Reading location: [place] Mammogram BI-RADS: Category 2: Benign us Jorge Orellana MD IMG MAMMO ORDERABLES Final Resu lt * [facility] BONE DENSITOMETRY AXIAL SKELETON (12/17/2022 1:36 PM CDT) Anatomical Region Laterality Modality BODY N/A Computed Radiogr aphy 12/17/2022 1:51 PM CDT Impressions 12/17/2022 1:55 PM CDT IMPRESSION: Osteopenia. REFERENCE: Bone mineral density: Normal (T-score above or = -1.0) Low bone mass (T-score between -1.0 and -2.5) replaces the previously used term osteopenia Osteoporosis (T-score = or below -2.5) Medical evaluation for secondary causes of low bone mineral density may be appropriate. FRAX is a World Health Organization validated fracture risk assessment tool that calculates a person's 10 year probability of a major osteoporosis related fracture and hip fracture. According to the National Osteoporosis Foundation guidelines, postmenopausal women and men age 50 or older with low bone mass and a 10 year probability of a major osteoporosis related fracture = or greater than 20% or a 10 year probability of a hip fracture = or greater than 3% should be considered for treatment. For further information, including treatment recommendations, please refer to the 2019 ISCD Official Positions (http://www.iscd.org) and the NOF's Clinician's Guide to Prevention and Treatment of Osteoporosis (http://www.nof.org/professionals/clinical-guidelines) Narrative 12/17/2022 1:55 PM CDT EXAM DESCRIPTION: [facility] BONE DENSITOMETRY AXIAL SKELETON REASON FOR STUDY: 67 y/o year old F with given history of: Postmenopausal Surgical Oncologist/Model: [facility]em [facility] (S/N [id number]) CLINICAL INFORMATION: Current height: 61 inches Maximum height: 62 inches Weight: 208 pounds Risk factors: Adult fracture. COMPARISON: 10/11/2020 FINDINGS: AP LUMBAR SPINE L1-L4: Total BMD is 1.136 g/cm2 T-score is -0.5 This is -2.1% change in comparison to prior exam which is not statistically significant. LEFT HIP: Total BMD is 0.959 g/cm2 T-score is -0.4 This is -2.5% change in comparison to prior exam which is not statistically significant. Femoral neck BMD is 0.861 g/cm2 T-score is -1.3 FRAX: 10 year risk for a major osteoporotic fracture is 13.4 %, 10 year risk for a hip fracture is 1.5 % THIS IS AN ELECTRONICALLY VERIFIED FINAL REPORT 12/17/2022 1:51 PM - Electronically signed by Samir Drake M.D. AG: AG Report ID: [id number] Reading Location: [place] [address] Procedure Note Samir Drake MD - 12/17/2022 EXAM DESCRIPTION: [facility] BONE DENSITOMETRY AXIAL SKELETON REASON FOR STUDY: 67 y/o year old F with given history of: Postmenopausal Surgical Oncologist/Model: Stem [facility] (S/N [id number]) CLINICAL INFORMATION: Current height: 61 inches Maximum height: 62 inches Weight: 208 pounds Risk factors: Adult fracture. COMPARISON: 10/11/2020 FINDINGS: AP LUMBAR SPINE L1-L4: Total BMD is 1.136 g/cm2 T-score is -0.5 This is -2.1% change in comparison to prior exam which is not statistically significant. LEFT HIP: Total BMD is 0.959 g/cm2 T-score is -0.4 This is -2.5% change in comparison to prior exam which is not statistically significant. Femoral neck BMD is 0.861 g/cm2 T-score is -1.3 FRAX: 10 year risk for a major osteoporotic fracture is 13.4 %, 10 year risk for a hip fracture is 1.5 % THIS IS AN ELECTRONICALLY VERIFIED FINAL REPORT 12/17/2022 1:51 PM - Electronically signed by Samir Drake M.D. AG: AG Report ID: [id number] Reading Location: [place] [address] IMPRESSION: Osteopenia. REFERENCE: Bone mineral density: Normal (T-score above or = -1.0) Low bone mass (T-score between -1.0 and -2.5) replaces the previously used term osteopenia Osteoporosis (T-score = or below -2.5) Medical evaluation for secondary causes of low bone mineral density may be appropriate. FRAX is a World Health Organization validated fracture risk assessment tool that calculates a person's 10 year probability of a major osteoporosis related fracture and hip fracture. According to the National Osteoporosis Foundation guidelines, postmenopausal women and men age 50 or older with low bone mass and a 10 year probability of a major osteoporosis related fracture = or greater than 20% or a 10 year probability of a hip fracture = or greater than 3% should be considered for treatment. For further information, including treatment recommendations, please refer to the 2019 ISCD Official Positions (http://www.iscd.org) and the NOF's Clinician's Guide to Prevention and Treatment of Osteoporosis (http://www.nof.org/professionals/clinical-guidelines) Bettie Dietz APRN, CNP IMG DEXA ORDERA BLES Final Result from Last 3 Months or Most Recently Relevant to Health Maintenance Insurance [employer] MEDICARE SUP MEDICARE C [employer] Care Teams Magazine Publisher Relationship Specialty Start Date End Date Jorge Orellana MD [address] [place] [address] PCP - General Family Medicine 02/28/23
--- OUTSIDE RECORDS SUMMARY | 2024-06-10 16:01 | XMS_ITS | Encounter Summary ---
Author Organization [facility] Address [address] 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 Gender Identity Not on file Sexual Orientation Not on file Occupation Industry Job Start Date Job End Date [employer]- [employer] claims Not on file Not on file Not on file documented as of this encounter Miscellaneous Notes * Telephone Encounter - Sedrick Gallardo RN - 05/30/2023 8:31 AM CST Patient no longer under provider care ER SHIELDED METAL ARC documented in this encounter Plan of Treatment Upcoming Encounters Date Type Department Care Team (Late st Contact Info) Description 12/20/2024 10:15 AM CDT Appointment [facility] Mammography [address] [place] [address] Radu Barajas, PAC [address] [place] [address] Discharge Disposition: Discharged to home or Selfcare documented as of this encounter Visit Diagnoses Diagnosis Primary osteoarthritis involving multiple joints documented in this encounter Additional Health Concerns Assessment Noted Time PHQ-9 Depression Total Score: 0 08/31/19 21 11:00 AM CDT documented as of this encounter Care Teams Psychiatric Nurse Practitioner Relationship Specialty Start Date End Date Jorge Orellana MD [address] [place] [address] PCP - General Family Medicine 02/28/23 documented as of this encounter
--- OUTSIDE RECORDS SUMMARY | 2024-06-10 16:01 | XMS_ITS | Clinical Summary ---
Author Organization [facility] [address] Address [address] [place] [address] Phone Care Team Providers Care Chief Reservoir Engineering Name Role Phone Trenton Guadarrama MD Unavailable [phone] Rafael Sadler Unavailable Unavail able Rafael Foster DO Unavailable [phone] Devan Eugene NP Unavailable [phone] Jorge Orellana MD Primary Care Provider [phone] Allergies Active Allergy Reactions Criticality Noted Date Comments Ampicillin Anaphylaxis High Cephalexin Anaphylaxis High Penicillins Anaphylaxis High Medications fluticasone (FLONASE) 50 mcg/actuation nasal sprayIndications :Chronic rhinitis, unspecified type Administer 1 spray into each nostril 2 (two) times a day. 1 spray 5 7 Active levothyroxine (SYNTHROID, LEVOTHROID) 88 mcg tablet Take by mouth. 8 Active brimonidine (ALPHAGAN) 0.2 % ophthalmic solution Administer 1 drop into the left eye 2 (two) times a day 1 Active timolol (TIMOPTIC) 0.5 % ophthalmic solution Administer 1 drop into the left eye 2 (two) times a day 1 Active diphenhydrAMINE- acetaminophen (TYLENOL PM) 25-500 mg tablet Take 1 tablet by mouth nightly as needed Active fluorometholone (FML) 0.1 % ophthalmic suspension Administer 1 drop into the left eye nightly 1 Active cholecalciferol (VITAMIN D-3) 2000 unit tablet Take 1 tablet (2,000 Units total) by mouth daily 30 tablet 1 Active meloxicam (MOBIC) 15 mg tablet Take 1 tablet (15 mg total) by mouth daily 2 Active traZODone (DESYREL) 50 mg tablet Take 1 tablet (50 mg total) by mouth nightly Active Active Problems Problem Noted Date Diagnosed Date NICM (nonischemic cardiomyopathy) 01/24/2022 PDA (patent ductus arteriosus) 01/24/2022 Hyperlipidemia 01/24/2022 Chest pain 01/24/2022 Primary osteoarthritis of right knee 11/21/2020 Overview (11/21/2020): Added automatically from request for surgery [id number] Age-related nuclear cataract, right eye 10/31/19 21 Endothelial corneal dystrophy 10/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 Other secondary cataract, left eye 10/30/2020 Presence of intraocular lens 10/30/2020 Primary osteoarthritis involving multiple joints 08/07/2018 Hypertension 12/15/2017 Patent ductus arteriosus 02/05/2017 Periodontal disease 02/05/2017 History of corneal transplant 02/05/2017 Chronic combined systolic an d diastolic heart failure, NYHA class 3 02/01/2017 Overview (10/30/2020): Echo 2013 [facility] SCHAFER: [id number] Cardiac Sonography (Echocardiography), Doppler May 25, 1999, 10:04 at [facility] Final View Details Echocardiogram and doppler report [...] DR CONTRERAS on: Apr 05 2016 5:23P Class 1 obesity in adult 02/01/2017 Hypothyroidism, adult 02/01/2017 Chronic rhinitis 02/01/2017 Encounter to discuss test results 02/01/2017 Overview (02/01/2017): PFTs September 18, 2001 Obesity associated restrictive lung disease no obstruction no bronchodilator response [facility] SCHAFER: [id number] Pulmonary Function Study Report September 18, 2001 at [facility] Preliminary View Details One [address] [facility] SYSTEM Jordana Pacheco 46Y MR#: [id number] PULMONARY FUNCTION STUDY ACCT: [id number] DR: Celso Reveles M.D. ADM: 09/17/2001 R DATE OF TEST: 09/17/01 1. The flow-volume curves show a mild reduction in all major flows with preservation to slight elevation of the FEV-1 percent. This suggests possible restriction. There is no major obstruction. There is no bronchodilator response. 2. Lung volumes and sub units measured with nitrogen washout in a closed circuit indicate moderate restriction. This may actually over- state the actual case, as the major flow rates themselves are only mildly reduced, and it appears more likely that there is mild rather than moderate restriction. 3. Carbon monoxide diffusing capacity is normal when adjustment is made for alveolar volume. IMPRESSION: Probably mild restriction -- No significant obstruction. Celso Reveles M.D. [id number] Immunizations Immunization Administration Dates Next Due Tdap 11/23/2013 ZOSTER LIVE 04/02/2013 Surgical History Surgery Date Site/Laterality Comments COLONOSCOPY 12/26/2000 colonoscopy (-) Dr. Lopez EGD 02/04/[address] Sadler biopsy (-) HYSTERECTOMY PATENT DUCTUS ARTERIOUS LIGATION repair BARIATRIC SURGERY gastric bypass CHOLECYSTECTOMY BLADDER REPAIR EYE SURGERY Left cornea/cataract FRACTURE SURGERY left ankle ESOPHAGOSCOPY / EGD Dr. Sadler February 04, 2014 for iron deficiency eval COLONOSCOPY 02/06/2012 - 03/06/[address] Valencia at [facility] COLONOSCOPY W/ BIOPSIES AND POLYPECTOMY 08/08/2017 Dr. Landnoscopy 08/08/2017, polyp at the appendiceal opening ANKLE FRACTURE SURGERY Left Medical History Medical History Date Comments Obesity Anemia LVH (left ventricular hypertrophy) Periodontal disease Rhinitis Thyroid disease Heart murmur Sleep apnea Deviated septum left nare CHF (congestive heart failure) (HCC) Congenital heart defect PDA Family History Medical History Relation Name Comments Heart disease Mother ASHD Relation Name Status Comments Mother Social History Tobacco Use Types Packs/Day Years Used Date Smoking Tobacco: Never Smokeless Tobacco: Never Alcohol Use Standard Drinks/Week Comments No 0 (1 standard drink = 0.6 oz pur e alcohol) AUDIT-C Answer Date Recorded Q1: How often do you have a drink containing alc ohol? Monthly or less 02/13/2021 Q2: How many drinks containi ng alcohol do you have on a typical day when you are drinking? 1 or 2 02/13/2021 Q3: How often do you have si x or more drinks on one occasion? Never 02/13/2021 PHQ-2 Answer Date Recorded PHQ-2 Total Score (If total score is 3 or more points, staff should administer the PHQ-9) 0 02/13/2021 Comments No Sex and Gender Information Value Date Recorded Sex Assigned at Not on file Legal Sex Female 3:17 AM MEAL COOKER Gender Identity Not on file Sexual Orientation Not on file Obstetrics History Last Filed Vital Signs Vital Sign Reading Time Taken Comments Blood Pressure 114/72 02/27/2024 11:09 AM MEAL COOKER Pulse 76 02/27/2024 11:09 AM MEAL COOKER Temperature 36.6 C (97.9 F) 02/21/2022 12:54 PM MEAL COOKER Respiratory Rate 16 02/14/2023 9:56 AM MEAL COOKER Oxygen Saturation 99% 02/21/2022 5:30 PM MEAL COOKER Inhaled Oxygen Concentration - - Weight 94.3 kg (208 lb) 02/27/2024 11:09 AM MEAL COOKER Height 154.9 cm (5' 1 ) 02/27/2024 11:09 AM MEAL COOKER Body Mass Index 39.3 02/27/2024 11:09 AM MEAL COOKER Plan of Treatment Health Maintenance Due Date Last Done Comments Albumin Creatinine Ratio, Urine 1953 Colon Cancer Screening-Colonoscopy 1953 Hemoglobin A1C 1953 Dilated Eye Exam 1953 Foot Exam 1953 Hepatitis B Screening 1971 Zoster Vaccine (2 of 3) 05/28/2013 04/02/2013 Well Visit 65+ 2018 02/05/2017 Depression Screening 11/21/2021 11/21/2020 Lipid Panel 01/26/2022 01/26/2021, 050 08/2020, 02/05/2019, Additional history exists Fall Risk Assessment 02/14/2022 02/14/2021 eGFR 02/19/2023 02/19/2022, 12/2020, 02/04/2017 Breast Cancer Screening-Mammogram 11/08/2023 11/07/2022, 11/07/2022, 10/11/2020, Additional history exists DTaP/Tdap/Td Vaccine (2 - Td or Tdap) 11/24/2023 11/23/2013 Influenza Vaccine (#1) 2023 Osteoporosis Screening-Bone Density Scan 12/17/2024 12/17/2022, 12/17/2022, 10/11/2020, Additional history exists Hepatitis C Screening Completed 09/08/2015, 016 Pneumococcal vaccine 65+ Completed 02/17/2020, 11/2018 Medical Devices Implanted Type Area Manager Heavy Duty Device Identifier Shelf Expiration Date Model / Serial / Lot [id number] Angio-Seal Evolution 6fr Vascular Closure [id number] - [id number] Implanted:Qty: 1 on 02/21/2022 by Tomas Levy MD at [facility] Other - see comments PLAXD Mayela 03/06/2022 [id number] / / [id number] [employer] 6195-1-001 Cement Bone Simplex Gentamicin High Viscosity 40gm - [id number] Implanted:Qty: 1 on 02/13/2021 by Samir Oliveira MD at [facility] Right: Knee [employer] 04/06/2022 6195-1-001 / / [id number] [employer] [id number] Attune Cruciate Retain Cementless Knee Right 4 Component Femoral - [id number] Implanted:Qty: 1 on 02/13/2021 by Samir Oliveira MD at [facility] Right: Knee [employer] 07/05/2030 [id number] / / [id number] [employer] [id number] Attune S+ Cement Fix Bearing Knee 4 Baseplate Tibial - [id number] Implanted:Qty: 1 on 02/13/2021 by Samir Oliveira MD at [facility] Right: Knee [employer] 12/05/2030 [id number] / / [id number] [employer] [id number] Attune 7mm Cruciate Retaining Fix Bearing Knee 4 Insert Tibial - [id number] Implanted:Qty: 1 on 02/13/2021 by Samir Oliveira MD at [facility] Right: Knee [employer] 07/05/2025 [id number] / / [id number] Procedures Procedure Name Priority Date/Time Associated Diagnosis Comments EGFR Routine 02/19/2022 11:17 AM MEAL COOKER Chest pain, unspecified type DEXA AXIAL SKELETON BONE DENSITY 1 OR MORE SITES Schedule Routine, Read Routine (OP Routine) 03/07/2017 11:30 AM MEAL COOKER Menopause SCREENING MAMMOGRAM 2D BILATERAL Schedule Routine, Read Routine (OP Routine) 03/07/2017 11:29 AM MEAL COOKER Breast cancer screening SERUM LIPID PANEL Routine 03/21/2016 7:2 4 PM MEAL COOKER HEPATITIS C ANTIBODY Routine 09/08/2015 2:05 PM CDT from Last 3 Months or Most Recently Relevant to Health Maintenance Results * eGFR (02/19/2022 11:17 AM MEAL COOKER) eGFR 61 mL/min/1. 73 m2 [facility] ([place]) Comment: Interpretive Data Reference Interval Normal >/= 90 mL/min/1.73m2 Mildly decreased* 60 - 89 mL/min/1.73m2 Mildly to moderately decreased 45 - 59 mL/min/1.73m2 Moderately to severely decreased 30 - 44 mL/min/1.73m2 Severely decreased 15 - 29 mL/min/1.73m2 Kidney Failure < 15 mL/min/1.73m2 *Relative to young adult level Estimated glomerular filtration rate is determined by the 2020 CKD-EPI equation recommended by the National Kidney Foundation (A Unifying Approach to GFR Estimation: Recommendations of the NKF-ASK Task Force on Reassessing the Inclusion of Race in Diagnosing Kidney Disease, JASN 2020). The CKD-EPI equation should not be used for patients with unstable renal function and has not been validated in children and those over 70. Current interpretive data was last reviewed 2021. Blood 02/19/2022 11:1 7 AM MEAL COOKER 02/19/2022 11:21 AM MEAL COOKER us Tomas Levy MD LAB BLOOD ORDERABLES Final Resu lt [facility]EN WE[facility] ([place]) 1 [facility] Department of Laboratories [place], [place] [id number] * Dexa Axial Skeleton Bone Density 1 or 2 Site (03/07/2017 11:30 AM MEAL COOKER) Anatomical Region Laterality Modality Body N/A Digital Radiogra phy us Domitila Groves MD IMG DXA PROCEDURES Final R esult * Screening Mammogram 2D Bilateral (03/07/2017 11:29 AM MEAL COOKER) Anatomical Region Laterality Modality Breast Bilateral Mammography Impressions 03/27/2017 4:42 PM MEAL COOKER There is no mammographic evidence of malignancy. Any decision to biopsy should be based on clinical assessment. Screening mammogram in 1 year is recommended. BI-RADS Category 1: Negative Narrative 03/27/2017 4:42 PM MEAL COOKER BILATERAL DIGITAL MAMMOGRAPHY The present examination has been compared to a prior imaging study dated 02/23/2016. Mammogram Findings: CAD (computer-aided detection) software was utilized. There are scattered fibroglandular densities that could obscure a lesion on mammography. No masses, significant calcifications or other abnormalities are seen. Domitila Groves MD IMG MAMMO PROCEDURES Final Result * Serum lipid panel (03/21/2016 7:24 PM MEAL COOKER) Cholesterol 139 100 - 200 mg/dl CDR HISTORICAL RESULTS Comment: Interpretive Data Desirable: <200 mg/dL Borderline high: 200-239 mg/dL High: >240 mg/dL Current interpretive data was last revised on 2015. Triglycerides 109 10 - 150 mg/dl CDR HISTORICAL RESULTS Comment: Interpretive Data Desirable: < 150 mg/dL Borderline High: 150 - 199 mg/dL High: 200 - 499 mg/dL Very High: > or = 499 mg/dL Current interpretive data was last revised on 2015. HDL 54 40 - 59 mg/dl CDR HISTORICAL RESULTS Comment: Interpretive Data Less than 40 mg/dL - Low; A major risk factor for heart disease. Greater than or equal to 60 mg/dL - High; Considered protective of heart disease. Current interpretive data was last revised on 2015. LDL 63 60 - 129 mg/dl CDR HISTORICAL RESULTS Comment: Interpretive Data Optimal: < 100 mg/dL Near Optimal: 100 - 129 mg/dL Borderline High: 130 - 159 mg/dL High: > 160 mg/dL Current interpretive data was last revised on 2015. Non-HDL cholesterol, calculated 85 mg/dl CDR HISTORICAL RESULTS Comment: Interpretive Data When triglycerides are >200 mg/dL, non-HDL C is a secondary target of therapy, with a goal 30 mg/dL higher than the identified LDL-C goal. Current interpretive data was last revised 2015. Serum 03/21/2016 7:24 PM MEAL COOKER us Luz Maria Davila MUSIC ENGRAVER LAB BLOOD ORDERABLES Final Result CDR HISTORICAL RESULTS * Hepatitis C antibody (09/08/2015 2:05 PM CDT) Hep C Ab 0.2 0.0 - 0.9 s/co ratio [facility] HISTORICAL RESULTS Comment: Negative: < 0.8 Indeterminate: 0.8 - 0.9 Positive: > 0.9 . The CDC recommends that a positive HCV antibody result be followed up with a HCV Nucleic Acid Amplification test (401175). 09/08/2015 2:05 PM CDT Domitila Groves MD LAB MICROBIOLOGY - GENERAL ORDERABLES Final Result [facility] HISTORICAL RESULTS from Last 3 Months or Most Recently Relevant to Health Maintenance Insurance [facility] CHOICE PLUS [facility] HMO/PPO Address: [facility] [address] [place] [address] MEDICARE [facility] [facility] [place] [facility] REF [facility] MEDICARE Address: [address] [address] [place] [address] MEDICARE [facility] [place] [facility] ADVANTAGE CHOICE PPO Advance Directives For more information, please contact: [phone] * Full Code (Latest Code Status on File) Date Activated Date Inactivated Comments 02/21/2022 2:06 PM 02/21/2022 9:38 PM * Full Code Date Activated Date Inactivated Comments 02/13/2021 4:35 PM 02/14/2021 7:55 PM Care Teams Chief Reservoir Engineering Relationship Specialty Start Date End Date Jorge Orellana MD [address] [place] [address] DR [address] [place] [id number] PCP - General Family Practice 02/14/23 Trenton Guadarrama MD [address] [place] [address] Consulting Physician Ophthalmology 02/05/17 Rafael Sadler [address] [place] [address] Gastroenterology 02/05/17 Rafael Foster DO [address] [place] [address] Consulting Physician Gastroenterology 02/05/17 Devan Eugene NP [address] [place] [address] DR [address] [place] [id number] Nurse Practitioner Nurse Practitioner 02/14/21
--- OUTSIDE RECORDS SUMMARY | 2024-06-10 16:01 | XMS_ITS | Referral Summary ---
Author Organization [facility] [address] Address [address] [place] [address] Phone Care Team Providers Care Personnel Specialist Name Role Phone Trenton Guadarrama MD Unavailable [phone] Rafael Sadler Unavailable Unavail able Rafael Foster DO Unavailable [phone] Devan Eugene NP Unavailable [phone] Jorge Orellana MD Primary Care Provider [phone] Allergies Active Allergy Reactions Criticality Noted Date [...] (11/21/2020): Added automatically from request for surgery [id number] Age-related nuclear cataract, right eye 10/31/19 21 Endothelial corneal dystrophy 10/30/2020 Other secondary cataract, left eye 10/30/2020 Presence of intraocular lens 10/30/2020 Primary osteoarthritis involving multiple joints 08/07/2018 Hypertension 12/15/2017 Patent ductus arteriosus 02/05/2017 Periodontal disease 02/05/2017 History of corneal transplant 02/05/2017 Chronic combined systolic an d diastolic heart failure, NYHA class 3 02/01/2017 Overview (10/30/2020): Echo 2013 [facility] SCHAFER: [id number] Cardiac Sonography (Echocardiography), Doppler May 25, 1999, 10:04 at [facility] Final View Details Echocardiogram and doppler report [...] lung disease no obstruction no bronchodilator response [facility] SCHAFER: [id number] Pulmonary Function Study Report September 18, 2001 at [facility] Preliminary View Details One [address] [facility] SYSTEM Jordana Pacheco 46Y MR#: [id number] PULMONARY FUNCTION STUDY ACCT: [id number] DR: Celso Reveles M.D. ADM: 09/17/2001 R [...] -- No significant obstruction. Celso Reveles M.D. [id number] Immunizations Immunization Administration Dates Next Due Tdap 11/23/2013 ZOSTER LIVE 04/02/2013 Social History Tobacco Use Types Packs/Day Years [...] on file Legal Sex Female 3:17 AM GARNISHMENT SPECIALIST Gender Identity Not on file Sexual Orientation Not on file Last Filed Vital Signs Vital Sign Reading Time Taken Comments Blood Pressure 114/72 02/27/2024 11:09 AM GARNISHMENT SPECIALIST Pulse 76 02/27/2024 11:09 AM GARNISHMENT SPECIALIST Temperature 36.6 C (97.9 F) 02/21/2022 12:54 PM GARNISHMENT SPECIALIST Respiratory Rate 16 02/14/2023 9:56 AM GARNISHMENT SPECIALIST Oxygen Saturation 99% 02/21/2022 5:30 PM GARNISHMENT SPECIALIST Inhaled Oxygen Concentration - - Weight 94.3 kg (208 lb) 02/27/2024 11:09 AM GARNISHMENT SPECIALIST Height 154.9 cm (5' 1 ) 02/27/2024 11:09 AM GARNISHMENT SPECIALIST Body Mass Index 39.3 02/27/2024 11:09 AM GARNISHMENT SPECIALIST Plan of Treatment Not on file Medical Devices Implanted Type Area Technician Terminal And Repeater Device Identifier Shelf Expiration Date Model / Serial / Lot [employer] Angio-Seal Evolution 6fr Vascular Closure [id number] - [id number] Implanted:Qty: 1 on 02/21/2022 by Tomas Levy MD at [facility] Other - see comments Imindi Mayela 03/06/2022 [id number] / / [id number] [employer] 6195-1-001 Cement Bone Simplex Gentamicin High Viscosity 40gm - [id number] Implanted:Qty: 1 on 02/13/2021 by Samir Oliveira MD at [facility] Right: Knee [employer] 04/06/2022 6195-1-001 / / [id number] [employer] [id number] Attune Cruciate Retain Cementless Knee Right 4 Component Femoral - [id number] Implanted:Qty: 1 on 02/13/2021 by Samir Oliveira MD at [facility] Right: Knee [employer] 07/05/2030 [id number] / / [id number] [employer] [id number] Attune S+ Cement Fix Bearing Knee 4 Baseplate Tibial - [id number] Implanted:Qty: 1 on 02/13/2021 by Samir Oliveira MD at [facility] Right: Knee [employer] 12/05/2030 [id number] / / [id number] [employer] [id number] Attune 7mm Cruciate Retaining Fix Bearing Knee 4 Insert Tibial - [id number] Implanted:Qty: 1 on 02/13/2021 by Samir Oliveira MD at [facility] Right: Knee [employer] 07/05/2025 [id number] / / [id number] Procedures Procedure Name Priority Date/Time Associated Diagnosis Comments EGFR Routine 02/19/2022 11:17 AM GARNISHMENT SPECIALIST Chest pain, unspecified type DEXA AXIAL SKELETON BONE DENSITY 1 OR MORE SITES Schedule Routine, Read Routine (OP Routine) 03/07/2017 11:30 AM GARNISHMENT SPECIALIST Menopause SCREENING MAMMOGRAM 2D BILATERAL Schedule Routine, Read Routine (OP Routine) 03/07/2017 11:29 AM GARNISHMENT SPECIALIST Breast cancer screening SERUM LIPID PANEL Routine 03/21/2016 7:2 4 PM GARNISHMENT SPECIALIST HEPATITIS C ANTIBODY Routine 09/08/2015 2:05 PM CDT from Last 3 Months or Most Recently Relevant to Health Maintenance Results * eGFR (02/19/2022 11:17 AM GARNISHMENT SPECIALIST) eGFR 61 mL/min/1. 73 m2 [facility] ERIBERTO ([place]) Comment: Interpretive Data Reference Interval Normal >/= [...] reviewed 2021. Blood 02/19/2022 11:1 7 AM GARNISHMENT SPECIALIST 02/19/2022 11:21 AM GARNISHMENT SPECIALIST us Tomas Levy MD LAB BLOOD ORDERABLES Final Resu lt [facility] ([place]) 1 [facility] Department of Laboratories [place], [place] [id number] * Dexa Axial Skeleton Bone Density 1 or 2 Site (03/07/2017 11:30 AM GARNISHMENT SPECIALIST) Anatomical Region Laterality Modality Body N/A Digital Radiogra phy us Domitila Groves MD IMG DXA PROCEDURES Final R esult * Screening Mammogram 2D Bilateral (03/07/2017 11:29 AM GARNISHMENT SPECIALIST) Anatomical Region Laterality Modality Breast Bilateral Mammography Impressions 03/27/2017 4:42 PM GARNISHMENT SPECIALIST There is no mammographic evidence of malignancy. Any decision to biopsy should be based on clinical assessment. Screening mammogram in 1 year is recommended. BI-RADS Category 1: Negative Narrative 03/27/2017 4:42 PM GARNISHMENT SPECIALIST BILATERAL DIGITAL MAMMOGRAPHY The present examination has been compared to a prior imaging study dated 02/23/2016. Mammogram Findings: CAD (computer-aided detection) software was utilized. There are scattered fibroglandular densities that could obscure a lesion on mammography. No masses, significant calcifications or other abnormalities are seen. Domitila Groves MD IMG MAMMO PROCEDURES Final Result * Serum lipid panel (03/21/2016 7:24 PM GARNISHMENT SPECIALIST) Cholesterol 139 100 - 200 mg/dl CDR [...] last revised 2015. Serum 03/21/2016 7:24 PM GARNISHMENT SPECIALIST Luz Maria Davila MINOR LEAGUE BASEBALL PLAYER LAB BLOOD ORDERABLES Final Result [facility] HISTORICAL RESULTS * Hepatitis C antibody (09/08/2015 2:05 PM CDT) Hep C Ab 0.2 0.0 - 0.9 s/co ratio [facility] HISTORICAL RESULTS Comment: Negative: < 0.8 Indeterminate: 0.8 - 0.9 Positive: > 0.9 . The CDC recommends that a positive HCV antibody result be followed up with a HCV Nucleic Acid Amplification test ([id number]). 09/08/2015 2:05 PM CDT Domitila Groves MD LAB MICROBIOLOGY - GENERAL ORDERABLES Final Result [facility] HISTORICAL RESULTS from Last 3 Months or Most Recently Relevant to Health Maintenance Insurance [facility] CHOICE PLUS MEDICARE [employer] [place] [facility] MDCR HMO REF MEDICARE [employer] [place] [address] [facility] [employer] ADVANTAGE CHOICE PPO Advance Directives For more information, please contact: [phone] * Full Code (Latest Code Status on File) Date Activated Date Inactivated Comments 02/21/2022 2:06 PM 02/21/2022 9:38 PM * Full Code Date Activated Date Inactivated Comments 02/13/2021 4:35 PM 02/14/2021 7:55 PM Care Teams Personnel Specialist Relationship Specialty Start Date End Date Jorge Orellana MD [address] [facility] [address] DR[address] [place] [id number] PCP - General Family Practice 02/14/23 Trenton Guadarrama MD [address] [address] Consulting Physician Ophthalmology 02/05/17 Rafael Sadler [address] [address] Gastroenterology 02/05/17 Rafael Foster DO [address] [address] Consulting Physician Gastroenterology 02/05/17 Devan Eugene, EDWAR [address] [place] [address] [address] [place] [id number] Nurse Practitioner Nurse Practitioner 02/14/21
[2024-06-10 18:58] LABS: Hematocrit 36.9 % (37.0-47.0); Hemoglobin 12.1 g/dL (12.0-15.0); Mean Corpuscular HGB Conc 32.8 g/dl (32-36); Mean Corpuscular Hemoglobin 33.5 pg (26-34); Mean Corpuscular Volume 102.2 fl (80-100); Mean Platelet Volume 9.7 fl (7.4-10.4); Platelet Count Result 122 k/mm3 (150-375); Red Blood Count 3.61 M/mm3 (4.2-5.4); Red Cell Distribution Width 12.9 % (11.5-14.5); White Blood Count 5.2 K/mm3 (4.5-10.0)
[2024-06-10 19:23] LABS: Alanine Aminotransferase 11 U/L (6-35); Albumin Level 3.9 g/dL (3.5-5.1); Alkaline Phosphatase 64 U/L (38-126); Anion Gap 5 mmol/L (4-12); Aspartate Amino Transferase 29 U/L (14-36); Bilirubin,Total 1.4 mg/dL (0.2-1.3); Blood Urea Nitrogen 13 mg/dL (7-17); Calcium 8.8 mg/dL (8.4-10.2); Carbon Dioxide 31 mmol/L (22-30); Chloride 103 mmol/L (98-107); Estimated Glomerular Filt Rate 59; Glucose 108 mg/dL (65-110); Sodium 139 mmol/L (137-145)
[2024-06-10 20:21] LABS: Iron 72 ug/dL (37-170)
[2024-06-10 20:30] LABS: Percent Iron Saturation 21 % (20-50)
[2024-06-10 20:32] LABS: Vitamin D 25 Hydroxy 27.1 ng/mL
== END 2024-06-10 14:42 | disposition home or self-care (01) ==
LOC: ANHBWCLAB 14:42
PROVIDERS: PCP Family Medicine; Visit Provider Family Medicine
DX: I51.9 Heart disease, unspecified (principal); E03.9 Hypothyroidism, unspecified; D64.9 Anemia, unspecified; G47.00 Insomnia, unspecified; Z98.84 Bariatric surgery status; Z79.899 Other long term (current) drug therapy
CPT/HCPCS: 36415; 80053; 82306; 82607; 82728; 83540; 83550; 84443; 85027